=== PATIENT | female | born 1970 | race Caucasian/White ===

== ENCOUNTER → 2017-02-23 | Outpatient (CLI) | payer BC, OTHER ==
--- NOTE | 2017-02-24 02:25 | REP ---
Clinical: Back pain. Technique: AP, lateral, bilateral oblique, flexion/extension, and coned-down views of the lumbosacral spine. Findings: Alignment and lordosis is maintained. The vertebral bodies including transverse process and spinous processes are intact and normal. There is no evidence for acute fracture / compression injury or subluxation. No evidence for spondylolysis or spondylolisthesis. Mild age-related changes noted without significant degenerative disease. Impression: Normal lumbosacral spine radiograph series. Signed by Monty Morrow MD 02/24/2017 02:16 A
== END ==
LOC: M SMT 09:09
PROVIDERS: ATTEND Family Medicine
DX: M54.5 Low back pain (principal)

== ENCOUNTER → 2017-05-07 | Outpatient (CLI) | payer BC, OTHER ==
[2017-05-07 14:13] LABS: ALBUMIN/GLOBULIN RATIO 1.25 (1.00-1.93); ALKALINE PHOSPHATASE 71 U/L (45-117); ALT/SGPT 23 U/L (12-78); ANION GAP 7 MEQ/L (8-16); AST/SGOT 16 U/L (15-37); BILIRUBIN,TOTAL 0.8 MG/DL (0.2-1.0); BLOOD UREA NITROGEN 11 MG/DL (7-18); CALCIUM LEVEL 9.2 MG/DL (8.5-10.1); CARBON DIOXIDE LEVEL 25 MEQ/L (21-32); CHLORIDE LEVEL 108 MEQ/L (98-107); CREATININE FOR GFR 0.68 MG/DL (0.55-1.02); FREE T4 1.06 NG/DL (0.76-1.46); GLOMERULAR FILTRATION RATE > 60.0 (>58); GLUCOSE, FASTING 86 MG/DL (70-105); MAGNESIUM LEVEL 2.4 MG/DL (1.8-2.4); POTASSIUM SERUM 4.2 MEQ/L (3.5-5.1); SODIUM LEVEL 140 MEQ/L (136-145); TOTAL PROTEIN 7.2 GM/DL (6.4-8.2)
== END ==
LOC: M SMT 08:14
PROVIDERS: ATTEND Family Medicine
DX: M25.551 Pain in right hip (principal); Z13.29 Encounter for screening for other suspected endocrine disorder

== ENCOUNTER → 2017-05-20 | Outpatient (CLI) | payer BC, OTHER ==
--- NOTE | 2017-05-21 04:07 | REP ---
Clinical: Pelvic mass by MRI. Technique: Transabdominal pelvic ultrasound followed by transvaginal examination for better evaluation of the endometrium and adnexa with color Doppler evaluation of the ovaries. Findings: Bladder is unremarkable and measures 3.7 x 5.1 x 6.9 cm. Enlarged, heterogeneous uterus measures 9.1 x 5.9 x 5.9 cm and demonstrates scattered myometrial calcifications along with sub centimeter left submucosal cyst with small mural calcification and 2.3 cm right intramural fibroid. The endometrial complex measures 8.3 mm thickness. No discrete uterine or endometrial abnormalities are appreciated. Right ovary has been removed. Left ovary is normal in appearance and vascularity without evidence for torsion and measures 2.8 x 2.7 x 3.0 cm; RI=0.69. No pelvic fluid or adnexal mass lesion. Impression: 1. Heterogeneous anteverted uterus with 2.3 cm intramural fibroid and small nonspecific subcentimeter complex submucosal cyst. Normal left ovary. History of prior right oophorectomy. Signed by Monty Morrow MD 05/21/2017 03:58 A
== END ==
LOC: M RAD 11:42
PROVIDERS: ATTEND Family Medicine
DX: N80.0 Endometriosis of uterus (principal); D25.9 Leiomyoma of uterus, unspecified

== ENCOUNTER → 2017-07-05 | Outpatient (CLI) | payer BC, OTHER ==
[2017-07-05 15:07] LABS: ANION GAP 10 MEQ/L (8-16); BLOOD UREA NITROGEN 8 MG/DL (7-18); CALCIUM LEVEL 9.5 MG/DL (8.5-10.1); CARBON DIOXIDE LEVEL 25 MEQ/L (21-32); CHLORIDE LEVEL 108 MEQ/L (98-107); CREATININE FOR GFR 0.64 MG/DL (0.55-1.02); FREE T4 1.04 NG/DL (0.76-1.46); GLOMERULAR FILTRATION RATE > 60.0 (>58); GLUCOSE, FASTING 91 MG/DL (70-105); MAGNESIUM LEVEL 2.3 MG/DL (1.8-2.4); POTASSIUM SERUM 4.1 MEQ/L (3.5-5.1); SODIUM LEVEL 143 MEQ/L (136-145)
[2017-07-07 00:06] LABS: Lyme Disease IgG/IgM Antibodie <0.91 ISR (0.00-0.90); Lyme Disease IgM Ab Quantitati <0.80 index (0.00-0.79)
== END ==
LOC: M SMT 09:26
PROVIDERS: ATTEND Family Medicine
DX: M25.551 Pain in right hip (principal); M25.552 Pain in left hip; M79.1 Myalgia; M54.5 Low back pain

== ENCOUNTER → 2017-11-22 | Outpatient (REF) | payer OTHER | LOC: M LAB REF 17:18 | DX: R10.9 Unspecified abdominal pain (principal) ==

== ENCOUNTER → 2017-11-25 | Outpatient (CLI) | payer BC, OTHER | LOC: M SMT 08:45 | DX: D25.1 Intramural leiomyoma of uterus (principal); N88.8 Other specified noninflammatory disorders of cervix uteri; R10.2 Pelvic and perineal pain; Z90.721 Acquired absence of ovaries, unilateral | CPT/HCPCS: 76830 ==

== ENCOUNTER → 2018-02-03 | Outpatient (CLI) | payer BC, OTHER ==
[2018-02-03 14:28] LABS: ALBUMIN 4.3 GM/DL (3.2-5.2); ALBUMIN/GLOBULIN RATIO 1.26 (1.00-1.93); ALKALINE PHOSPHATASE 85 U/L (45-117); ALT/SGPT 21 U/L (12-78); ANION GAP 7 MEQ/L (8-16); AST/SGOT 19 U/L (7-37); BILIRUBIN,TOTAL 0.6 MG/DL (0.2-1.0); BLOOD UREA NITROGEN 8 MG/DL (7-18); CALCIUM LEVEL 9.1 MG/DL (8.5-10.1); CARBON DIOXIDE LEVEL 27 MEQ/L (21-32); CHLORIDE LEVEL 107 MEQ/L (98-107); CREATININE FOR GFR 0.77 MG/DL (0.55-1.30); GLOMERULAR FILTRATION RATE > 60.0 (>58); GLUCOSE, FASTING 92 MG/DL (70-100); MAGNESIUM LEVEL 2.4 MG/DL (1.8-2.4); POTASSIUM SERUM 4.4 MEQ/L (3.5-5.1); SODIUM LEVEL 141 MEQ/L (136-145); TOTAL PROTEIN 7.7 GM/DL (6.4-8.2)
== END ==
LOC: M SMT 09:53
DX: G47.62 Sleep related leg cramps (principal)
CPT/HCPCS: 83735

== ENCOUNTER → 2018-06-24 | Outpatient (CLI) | payer BC, OTHER ==
[2018-06-24 10:16] LABS: CHOLESTEROL LEVEL 165 MG/DL (<200); FREE T4 1.05 NG/DL (0.76-1.46); HDL CHOLESTEROL 66 MG/DL (>40); LDL CHOLESTEROL 86.4 MG/DL (<100); NON-HDL-C 99 MG/DL; TRIGLYCERIDES LEVEL 63 MG/DL (<150)
== END ==
LOC: M SMT 08:03
DX: Z13.220 Encounter for screening for lipoid disorders (principal)

== ENCOUNTER → 2018-12-13 | Outpatient (REF) | payer OTHER | LOC: M LAB REF 17:44 | PROVIDERS: ATTEND Obstetrics & Gynecology | DX: Z12.4 Encounter for screening for malignant neoplasm of cervix (principal); Z11.51 Encounter for screening for human papillomavirus (HPV) | CPT/HCPCS: 87624; G0123 ==

== ENCOUNTER → 2019-07-11 | Outpatient (CLI) | payer OTHER ==
[2019-07-11 13:36] LABS: ALBUMIN 4.1 GM/DL (3.2-5.2); BLOOD UREA NITROGEN 12 MG/DL (7-18); CARBON DIOXIDE LEVEL 26 MEQ/L (21-32); CHLORIDE LEVEL 108 MEQ/L (98-107); CREATININE FOR GFR 0.75 MG/DL (0.55-1.30); FOLLICLE STIMULATING HORMONE 7.9 mIU/mL; GLOMERULAR FILTRATION RATE > 60.0 (>58); GLUCOSE, FASTING 80 MG/DL (70-100); LUTEINIZING HORMONE 4.9 mIU/mL; PHOSPHORUS LEVEL 3.1 MG/DL (2.5-4.9); POTASSIUM SERUM 4.5 MEQ/L (3.5-5.1); SODIUM LEVEL 141 MEQ/L (136-145)
[2019-07-16 14:24] LABS: DEHYDROEPIANDROSTERONE UNCONJ 188 ng/dL (31-701); TESTOSTERONE FREE (DIRECT) 1.7 pg/mL (0.0-4.2)
== END ==
LOC: M SMT 09:10
PROVIDERS: ATTEND Physician Assistant
DX: Z51.81 Encounter for therapeutic drug level monitoring (principal); L68.0 Hirsutism

== ENCOUNTER → 2019-07-11 | Outpatient (CLI) | payer OTHER ==
[2019-07-11 13:13] LABS: BASO % 0.8 % (0.0-1.0); EOS # 0.2 10^3/uL (0.0-0.5); EOS % 3.1 % (0.0-3.0); HEMATOCRIT 45.7 % (36.0-47.0); HEMOGLOBIN 15.3 g/dl (12.0-15.5); LYMPH # 1.8 10^3/uL (1.5-5.0); LYMPH % 34.6 % (24.0-44.0); MEAN CORPUSCULAR HEMOGLOBIN 31.4 pg (27.0-33.0); MEAN CORPUSCULAR HGB CONC 33.5 g/dl (32.0-36.5); MEAN CORPUSCULAR VOLUME 93.8 fl (80.0-96.0); MONO # 0.3 10^3/uL (0.0-0.8); MONO % 6.7 % (0.0-5.0); NEUTROPHILS # 2.8 10^3/uL (1.5-8.5); NEUTROPHILS % 54.6 % (36.0-66.0); PLATELET COUNT, AUTOMATED 242 10^3/uL (150-450); RED BLOOD COUNT 4.87 10^6/uL (4.00-5.40); WHITE BLOOD COUNT 5.1 10^3/uL (4.0-10.0)
[2019-07-11 13:32] LABS: ALBUMIN 4.1 GM/DL (3.2-5.2); ALT/SGPT 15 U/L (12-78); BILIRUBIN,TOTAL 0.7 MG/DL (0.2-1.0); BLOOD UREA NITROGEN 12 MG/DL (7-18); CALCIUM LEVEL 9.3 MG/DL (8.5-10.1); CARBON DIOXIDE LEVEL 27 MEQ/L (21-32); CHLORIDE LEVEL 110 MEQ/L (98-107); CHOLESTEROL LEVEL 163 MG/DL (<200); CHOLESTEROL RISK RATIO 2.762 (<5); CREATININE FOR GFR 0.76 MG/DL (0.55-1.30); GLOMERULAR FILTRATION RATE > 60.0 (>58); GLUCOSE, FASTING 86 MG/DL (70-100); HDL CHOLESTEROL 59 MG/DL (>40); LDL CHOLESTEROL 93 MG/DL (<100); NON-HDL-C 104 MG/DL; POTASSIUM SERUM 4.4 MEQ/L (3.5-5.1); SODIUM LEVEL 144 MEQ/L (136-145); TOTAL 25(OH) VITAMIN D 42.6 NG/ML (30.0-100.0); TOTAL PROTEIN 7.3 GM/DL (6.4-8.2); TRIGLYCERIDES LEVEL 56 MG/DL (<150)
== END ==
LOC: M SMT 09:07
PROVIDERS: ATTEND Family Medicine
DX: Z13.29 Encounter for screening for other suspected endocrine disorder (principal); Z13.220 Encounter for screening for lipoid disorders; Z13.0 Encounter for screening for diseases of the blood and blood-forming organs and certain disorders involving the immune mechanism; E55.9 Vitamin D deficiency, unspecified

== ENCOUNTER → 2020-01-02 | Outpatient (CLI) | payer OTHER | LOC: M PLALAB 10:10 | PROVIDERS: ATTEND Family Medicine | DX: Z84.81 Family history of carrier of genetic disease (principal) ==

== ENCOUNTER → 2020-03-25 | Outpatient (CLI) | payer OTHER ==
[2020-03-25 10:52] LABS: BASO % 0.7 % (0.0-1.0); EOS # 0.1 10^3/uL (0.0-0.5); HEMATOCRIT 46.5 % (36.0-47.0); HEMOGLOBIN 15.1 g/dl (12.0-15.5); LYMPH # 1.5 10^3/uL (1.5-5.0); LYMPH % 26.6 % (24.0-44.0); MEAN CORPUSCULAR HEMOGLOBIN 30.1 pg (27.0-33.0); MEAN CORPUSCULAR HGB CONC 32.5 g/dl (32.0-36.5); MEAN CORPUSCULAR VOLUME 92.6 fl (80.0-96.0); MONO # 0.4 10^3/uL (0.0-0.8); MONO % 7.7 % (0.0-5.0); NEUTROPHILS # 3.5 10^3/uL (1.5-8.5); NEUTROPHILS % 62.8 % (36.0-66.0); PLATELET COUNT, AUTOMATED 253 10^3/uL (150-450); RED BLOOD COUNT 5.02 10^6/uL (4.00-5.40); WHITE BLOOD COUNT 5.6 10^3/uL (4.0-10.0)
[2020-03-25 10:55] LABS: APPEARANCE, URINE CLEAR (CLEAR); BACTERIA, URINE AUTO 1+ (NEGATIVE); BILIRUBIN, URINE AUTO NEGATIVE (NEGATIVE); BLOOD, URINE BLOOD NEGATIVE (NEGATIVE); COLOR, URINE STRAW (YELLOW); GLUCOSE, URINE (UA) AUTO NEGATIVE (NEGATIVE); KETONE, URINE AUTO NEGATIVE (NEGATIVE); LEUKOCYTE ESTERASE, URINE AUTO NEGATIVE (NEGATIVE); NITRITE, URINE AUTO NEGATIVE (NEGATIVE); PROTEIN, URINE AUTO NEGATIVE (NEGATIVE); RBC, URINE AUTO 0 /HPF (0-3); SPECIFIC GRAVITY URINE AUTO 1.004 (1.002-1.035); SQUAMOUS EPITHELIAL CELL UR AU 0 /HPF (0-6); UROBILINOGEN, URINE AUTO 0.2 mg/dL (0.0-2.0); WBC, URINE AUTO 0 /HPF (0-3)
[2020-03-25 10:57] LABS: BLOOD UREA NITROGEN 10 MG/DL (7-18); CALCIUM LEVEL 9.1 MG/DL (8.5-10.1); CARBON DIOXIDE LEVEL 26 MEQ/L (21-32); CHLORIDE LEVEL 107 MEQ/L (98-107); CREATININE FOR GFR 0.73 MG/DL (0.55-1.30); GLOMERULAR FILTRATION RATE > 60.0 (>58); GLUCOSE, FASTING 76 MG/DL (70-100); SODIUM LEVEL 140 MEQ/L (136-145)
[2020-03-25 11:13] LABS: HEMOGLOBIN A1c 5.2 %
[2020-03-25 11:34] LABS: CREATININE, URINE 17.1 MG/DL; MALB URINE SIEMENS < 5.0 MG/L; MAU/CREAT RATIO 29.2 MCG/MG (0.0-30.0)
== END ==
LOC: M PLALAB 08:07
PROVIDERS: ATTEND Internal Medicine Nephrology
DX: Z00.5 Encounter for examination of potential donor of organ and tissue (principal)

== ENCOUNTER → 2020-04-15 | Outpatient (CLI) | payer OTHER ==
[2020-04-15 12:24] LABS: APPEARANCE, URINE CLOUDY (CLEAR); BACTERIA, URINE AUTO NEGATIVE (NEGATIVE); BILIRUBIN, URINE AUTO NEGATIVE (NEGATIVE); BLOOD, URINE BLOOD NEGATIVE (NEGATIVE); COLOR, URINE YELLOW (YELLOW); GLUCOSE, URINE (UA) AUTO NEGATIVE (NEGATIVE); KETONE, URINE AUTO NEGATIVE (NEGATIVE); LEUKOCYTE ESTERASE, URINE AUTO NEGATIVE (NEGATIVE); MUCUS, URINE SMALL (NEGATIVE); NITRITE, URINE AUTO NEGATIVE (NEGATIVE); PROTEIN, URINE AUTO NEGATIVE (NEGATIVE); RBC, URINE AUTO 2 /HPF (0-3); SPECIFIC GRAVITY URINE AUTO 1.018 (1.002-1.035); SQUAMOUS EPITHELIAL CELL UR AU 3 /HPF (0-6); UROBILINOGEN, URINE AUTO 0.2 mg/dL (0.0-2.0); WBC, URINE AUTO 0 /HPF (0-3)
[2020-04-15 12:31] LABS: CREATININE FOR GFR 0.81 MG/DL (0.55-1.30); GLOMERULAR FILTRATION RATE > 60.0 (>58)
[2020-04-15 13:16] LABS: TOTAL VOLUME, URINE 1900 ML
[2020-04-15 13:26] LABS: MALB URINE SIEMENS 7.1 MG/L; MAU/CREAT RATIO 5.7 MCG/MG (0.0-30.0); TOTAL PROTEIN 24 HOUR URINE 317.3 MG/24HR (50-150); URINE TOTAL PROTEIN 16.7 MG/DL (0-12)
== END ==
LOC: M PLALAB 08:04
PROVIDERS: ATTEND Internal Medicine Nephrology
DX: Z00.5 Encounter for examination of potential donor of organ and tissue (principal)

== ENCOUNTER 2020-05-10 08:35 | Day surgery (SDC) | payer BC, OTHER ==
[~2020-05-10] VITALS: Ht 167.6 cm; Wt 67.9 kg
[~2020-05-10 08:35] MED LIST: MONT10TA4 PO; NS 1,000 ML IV ONE; OMEP-221 PO
[2020-05-10] MEDS ORDERED: propofoL 200 MG/20 ML VIAL As Ordered ONE ×2 (10:23→10:43)
[2020-05-10] MEDS ORDERED: LIDOCAINE 2% 100MG/5ML SDV (FOR ANES.) As Ordered ONE (10:23)
--- NOTE | 2020-05-10 11:00 | ROOR ---
Patient Name: Ayse Collazo Procedure Date: 05/10/2020 10:26 AM Date of : 1970 Age: 49 Room: [facility] Gender: Female Note Status: Finalized Procedure: Upper GI endoscopy Indications: Suspected gastro-esophageal reflux disease Providers: Raghu Aly MD Referring MD: Valeria RICHARDSON DO Requesting Provider: Medicines: Monitored Anesthesia Care Complications: No immediate complications. Procedure: Pre-Anesthesia Assessment: - Prior to the procedure, a History and Physical was performed, and patient medications and allergies were reviewed. The patient is competent. The risks and benefits of the procedure and the sedation options and risks were discussed with the patient. All questions were answered and informed consent was obtained. Patient identification and proposed procedure were verified by the physician, the nurse and the anesthesiologist in the procedure room. Mental Status Examination: alert and oriented. Airway Examination: normal oropharyngeal airway and neck mobility. Respiratory Examination: clear to auscultation. CV Examination: normal. Prophylactic Antibiotics: The patient does not require prophylactic antibiotics. Prior Anticoagulants: The patient has taken no previous anticoagulant or antiplatelet agents. ASA Grade Assessment: II - A patient with mild systemic disease. After reviewing the risks and benefits, the patient was deemed in satisfactory condition to undergo the procedure. The anesthesia plan was to use monitored anesthesia care (MAC). Immediately prior to administration of medications, the patient was re-assessed for adequacy to receive sedatives. The heart rate, respiratory rate, oxygen saturations, blood pressure, adequacy of pulmonary ventilation, and response to care were monitored throughout the procedure. The physical status of the patient was re-assessed after the procedure. The Endoscope was introduced through the mouth, and advanced to the second part of duodenum. The upper GI endoscopy was accomplished without difficulty. The patient tolerated the procedure well. Findings: Mucosal changes including ringed esophagus, longitudinal furrows and white plaques were found in the middle third of the esophagus and in the lower third of the esophagus. Biopsies were obtained from the proximal and distal esophagus with cold forceps for histology of suspected eosinophilic esophagitis. Verification of patient identification for the specimen was done by the physician and nurse using the patient's name, date and medical record number. The Z-line was regular and was found 40 cm from the incisors. Scattered mild inflammation characterized by erythema and granularity was found in the gastric antrum. Biopsies were taken with a cold forceps for Helicobacter pylori testing. The duodenal bulb and second portion of the duodenum were normal. Biopsies for histology were taken with a cold forceps for evaluation of celiac disease. Impression: - Esophageal mucosal changes suspicious for eosinophilic esophagitis. Biopsied. - Z-line regular, 40 cm from the incisors. - Gastritis. Biopsied. - Normal duodenal bulb and second portion of the duodenum. Biopsied. Recommendation: - Patient has a contact number available for emergencies. The signs and symptoms of potential delayed complications were discussed with the patient. Return to normal activities tomorrow. Written discharge instructions were provided to the patient. - High fiber diet. - Continue present medications. - Await pathology results. - Follow an antireflux regimen. - Telephone GI clinic for pathology results in 2 weeks. - Return to primary care physician. Raghu Aly MD Raghu Aly MD 05/10/2020 11:00:09 AM Electronically signed by Raghu Aly MD Number of Addenda: 0 Note Initiated On: 05/10/2020 10:26 AM Estimated Blood Loss: Estimated blood loss was minimal.
[2020-05-10 11:30] VITALS: BP 128/72
== END 2020-05-10 11:45 | disposition home or self-care (01) ==
LOC: M OPP 08:35
PROVIDERS: ATTEND Internal Medicine Gastroenterology
DX: K22.8 Other specified diseases of esophagus (principal); K29.70 Gastritis, unspecified, without bleeding; R12 Heartburn; R10.13 Epigastric pain; K21.0 Gastro-esophageal reflux disease with esophagitis

== ENCOUNTER → 2020-08-08 | Outpatient (CLI) | payer BC, OTHER ==
[~2020-08-08] MED LIST changes: +METHACHOLINE KIT (J7674) INH ONE; -NS 1,000 ML IV ONE
--- NOTE | 2020-08-08 13:14 | PFTRPT ---
Height: 65.00 Inches Weight: 150.00 Lbs BSA: 1.75 Diagnosis: R05 DATE: 08/08/2020 ORDERING PHYSICIAN: Dr. Juarez Study of excellent technical quality. Forced vital capacity is normal. FEV1 is in proportion, obstructive index is therefore normal. Expiratory limit of the flow-volume loop is normal. Total lung capacity is normal. Residual volume is in proportion. Diffusing capacity is normal. Hemoglobin is acceptable at 15. Airway resistance and conductance are normal. IMPRESSION: Normal study. MTDD
--- NOTE | 2020-08-08 13:59 | PFTRPT ---
Site: [facility], [address] [place], [address] ID: [id number] Name: DRAGAN BILLINGSLEY Visit Date: 08/08/2020 Second ID: [id number] Referring Doctor: Janusz Juarez MD Reviewing Doctor: Janusz Juarez MD Coverer: Alden BOWERS, BRODY Age: 50 : 1970 Sex: Female Race: Height: 65.00 Inches Weight: 150.00 Lbs BSA: 1.75 Order IDs: [id number] Requested Test(s): <RESP-PFT.METH CHAL> Diagnosis: R05 of albuterol for post bronchodilator. Review Status: Not Reviewed Pre-Bronch Post-Bronch Pred Actual %Pred Actual %Chng SPIROMETRY FVC (L) 3.68 3.40 92 3.15 -7 FEV1 (L) 2.92 2.69 92 2.59 -3 FEV1/FVC (%) 80 79 98 82 4 FEF 25% (L/sec) 5.35 5.03 94 5.55 10 FEF 50% (L/sec) 3.95 3.00 76 2.85 -5 FEF 75% (L/sec) 1.46 1.01 68 0.76 -24 FEF 25-75% (L/sec) 2.85 2.35 82 2.08 -11 FEF Max (L/sec) 6.92 7.01 101 6.14 -12 FIVC (L) 3.35 3.34 FIF 50% (L/sec) 3.67 5.17 140 3.41 -33 FIF Max (L/sec) 5.26 3.60 -31 Expiratory Time (sec) 6.43 6.59 2 Back Extrap Vol (L) 0.08 0.09 21 Time To FEFmax (sec) 0.067 0.090 35
== END ==
LOC: M CARPUL 12:39
PROVIDERS: ATTEND Internal Medicine Pulmonary Disease
DX: R05 Cough (principal)
CPT/HCPCS: 88738; 94010; 94070; 94726; 94729; J7674

== ENCOUNTER → 2020-08-12 | Outpatient (REF) | payer OTHER ==
[~2020-08-12] MED LIST changes: -METHACHOLINE KIT (J7674) INH ONE
== END ==
LOC: M PLALAB 09:12
PROVIDERS: ATTEND Obstetrics & Gynecology
DX: Z12.4 Encounter for screening for malignant neoplasm of cervix (principal)

== ENCOUNTER → 2021-02-05 | Outpatient (CLI) | payer BC, OTHER ==
[~2021-02-05] MED LIST changes: +MONT10TA10 PO; -MONT10TA4 PO
--- NOTE | 2021-02-05 08:27 | REPPI ---
INDICATION: COUGH COMPARISON: 07/18/2020 TECHNIQUE: PA and lateral. FINDINGS: The mediastinum and cardiac silhouette are normal. The lung mujica are clear and without acute consolidation, effusion, or pneumothorax. The skeletal structures are intact and normal. IMPRESSION: No acute cardiopulmonary process. <Electronically signed by Monty Morrow > 02/05/21 0804
== END ==
LOC: M PLAIMG 08:02
PROVIDERS: ATTEND Internal Medicine Pulmonary Disease
DX: R05 Cough (principal)

== ENCOUNTER → 2021-02-11 | Outpatient (CLI) | payer BC, OTHER ==
[~2021-02-11] MED LIST changes: +ISOVUE-370 76% 100ML VIAL As Ordered ONE
--- NOTE | 2021-02-11 15:24 | REP ---
INDICATION: SHORTNESS OF BREATH COMPARISON: None. TECHNIQUE: Axial contrast enhanced images from the thoracic inlet to the upper abdomen using pulmonary embolus technique with multiplanar re-formations. 75 ml Isovue 370 intravenous contrast material administered without complication. This CT examination was performed using the following dose reduction techniques: Automated exposure control, adjustment of mA and/or kv according to the patient's size, and use of iterative reconstruction technique. FINDINGS: Satisfactory enhancement of the pulmonary vasculature is achieved and no filling defects are identified to suggest pulmonary embolus. Further evaluation of the mediastinum demonstrates normal thoracic aorta, heart and pericardium. The bilateral lung mujica are well aerated and clear without consolidation pleural effusion or pneumothorax. Tracheobronchial tree is patent. No nodule or mass lesion is identified. No adenopathy noted. Surrounding musculoskeletal structures intact IMPRESSION: No evidence for pulmonary embolus. No acute mediastinal or pleural parenchymal process. <Electronically signed by Monty Morrow > 02/11/21 0351
[2021-02-11 16:10] LABS: CK-MB VALUE MASS < 1.0 NG/ML (<3.6); CPK CREATINE PHOSPHOKINASE 80 U/L (26-192); MB/CK RELATIVE INDEX 1.25 (< OR =4); TROPONIN I < 0.02 NG/ML (< 0.10)
== END ==
LOC: M RAD 14:47
PROVIDERS: ATTEND Family Medicine
DX: R06.02 Shortness of breath (principal)

== ENCOUNTER → 2021-07-03 | Outpatient (CLI) | payer OTHER, BC ==
[~2021-07-03] MED LIST changes: -ISOVUE-370 76% 100ML VIAL As Ordered ONE
[2021-07-03 10:46] LABS: BASO # 0.1 10^3/uL (0.0-0.2); EOS # 0.1 10^3/uL (0.0-0.5); EOS % 1.8 % (0.0-3.0); HEMATOCRIT 44.7 % (36.0-47.0); LYMPH # 1.9 10^3/uL (1.5-5.0); LYMPH % 30.9 % (24.0-44.0); MEAN CORPUSCULAR HEMOGLOBIN 30.8 pg (27.0-33.0); MEAN CORPUSCULAR HGB CONC 33.6 g/dl (32.0-36.5); MEAN CORPUSCULAR VOLUME 91.8 fl (80.0-96.0); MONO # 0.5 10^3/uL (0.0-0.8); MONO % 8.5 % (2.0-8.0); NEUTROPHILS # 3.5 10^3/uL (1.5-8.5); NEUTROPHILS % 57.6 % (36.0-66.0); PLATELET COUNT, AUTOMATED 311 10^3/uL (150-450); RED BLOOD COUNT 4.87 10^6/uL (4.00-5.40)
[2021-07-03 11:26] LABS: ALBUMIN 3.9 GM/DL (3.2-5.2); ALT/SGPT 14 U/L (12-78); BILIRUBIN,TOTAL 0.7 MG/DL (0.2-1.0); BLOOD UREA NITROGEN 10 MG/DL (7-18); CALCIUM LEVEL 9.2 MG/DL (8.5-10.1); CARBON DIOXIDE LEVEL 28 MEQ/L (21-32); CHLORIDE LEVEL 109 MEQ/L (98-107); CHOLESTEROL LEVEL 172 MG/DL (<200); CHOLESTEROL RISK RATIO 2.529 (<5); CREATININE FOR GFR 0.71 MG/DL (0.55-1.30); FREE T4 1.17 NG/DL (0.76-1.46); GLOMERULAR FILTRATION RATE > 60.0 (>58); GLUCOSE, FASTING 86 MG/DL (70-100); HDL CHOLESTEROL 68 MG/DL (>40); LDL CHOLESTEROL 92 MG/DL (<100); NON-HDL-C 104 MG/DL; POTASSIUM SERUM 3.6 MEQ/L (3.5-5.1); SODIUM LEVEL 142 MEQ/L (136-145); TOTAL PROTEIN 7.1 GM/DL (6.4-8.2); TRIGLYCERIDES LEVEL 58 MG/DL (<150)
== END ==
LOC: M PLALAB 08:21
PROVIDERS: ATTEND Family Medicine
DX: Z13.0 Encounter for screening for diseases of the blood and blood-forming organs and certain disorders involving the immune mechanism (principal)

== ENCOUNTER → 2021-10-08 | Outpatient (REF) | payer OTHER, BC | LOC: M SFHCWAGY 13:06 | PROVIDERS: ATTEND Obstetrics & Gynecology | DX: Z12.4 Encounter for screening for malignant neoplasm of cervix (principal) ==

== ENCOUNTER → 2021-10-14 | Outpatient (REF) | payer OTHER, BC | LOC: M LAB REF 17:03 | PROVIDERS: ATTEND Family Medicine | DX: J02.9 Acute pharyngitis, unspecified (principal); J06.9 Acute upper respiratory infection, unspecified ==

== ENCOUNTER → 2021-11-21 | Outpatient (CLI) | payer BC, OTHER ==
[~2021-11-21] MED LIST changes: -MONT10TA10 PO; +MONT10TA97 PO; -OMEP-221 PO; +OMEP40CA5 PO
== END ==
LOC: M PLAIMG 13:20
PROVIDERS: ATTEND Physician Assistant Medical
DX: J32.9 Chronic sinusitis, unspecified (principal)

== ENCOUNTER → 2021-12-10 | Outpatient (CLI) | payer BC, OTHER ==
[2021-12-10 15:36] LABS: HEMATOCRIT 45.6 % (36.0-47.0); MEAN CORPUSCULAR HEMOGLOBIN 30.2 pg (27.0-33.0); MEAN CORPUSCULAR HGB CONC 32.9 g/dl (32.0-36.5); MEAN CORPUSCULAR VOLUME 91.8 fl (80.0-96.0); PLATELET COUNT, AUTOMATED 348 10^3/uL (150-450); RED BLOOD COUNT 4.97 10^6/uL (4.00-5.40); WHITE BLOOD COUNT 8.9 10^3/uL (4.0-10.0)
[2021-12-10 16:07] LABS: ALBUMIN 4.1 GM/DL (3.2-5.2); ALT/SGPT 13 U/L (12-78); BILIRUBIN,TOTAL 0.5 MG/DL (0.2-1.0); BLOOD UREA NITROGEN 7 MG/DL (7-18); CALCIUM LEVEL 9.4 MG/DL (8.5-10.1); CARBON DIOXIDE LEVEL 27 MEQ/L (21-32); CHLORIDE LEVEL 106 MEQ/L (98-107); CREATININE FOR GFR 0.67 MG/DL (0.55-1.30); GLOMERULAR FILTRATION RATE > 60.0 (>51); GLUCOSE, FASTING 87 MG/DL (70-100); IRON (FE) 41 UG/DL (50-170); MAGNESIUM LEVEL 2.4 MG/DL (1.8-2.4); NT-PRO BNP 145 PG/ML (<125); PERCENT SATURATION 13.9 % (13.2-45.0); SODIUM LEVEL 140 MEQ/L (136-145); TOTAL IRON BINDING CAPACITY 295 UG/DL (250-450); TOTAL PROTEIN 7.4 GM/DL (6.4-8.2)
== END ==
LOC: M PLALAB 14:04
PROVIDERS: ATTEND Physician Assistant
DX: R00.2 Palpitations (principal); R06.02 Shortness of breath

== ENCOUNTER → 2021-12-16 | Outpatient (CLI) | payer BC, OTHER ==
[2021-12-18 20:07] LABS: ANA (HEP2) Negative (.)
== END ==
LOC: M PLALAB 12:38
PROVIDERS: ATTEND Family Medicine
DX: R68.2 Dry mouth, unspecified (principal)

== ENCOUNTER → 2022-01-09 | Outpatient (CLI) | payer BC, OTHER ==
[2022-01-09 17:36] LABS: C REACTIVE PROTEIN QUANTITATIV < 0.30 MG/DL (0.00-0.30); RHEUMATOID FACTOR QUANT < 10.0 IU/ML (<15.0)
== END ==
LOC: M PLALAB 14:52
PROVIDERS: ATTEND Nurse Practitioner Adult Health
DX: R76.0 Raised antibody titer (principal)

== ENCOUNTER → 2022-03-06 | Outpatient (CLI) | payer BC, OTHER ==
[2022-03-11 00:07] LABS: BORDETELLA PERTUSSIS ABY IgA 1.8 index (0.0-0.9); BORDETELLA PERTUSSIS ABY IgM <1.0 index (0.0-0.9)
== END ==
LOC: M PLALAB 15:39
PROVIDERS: ATTEND Physician Assistant
DX: R05.3 Chronic cough (principal)

== ENCOUNTER → 2022-03-06 | Outpatient (CLI) | payer BC, OTHER | LOC: M WHC 14:28 | PROVIDERS: ATTEND Physician Assistant | DX: E04.2 Nontoxic multinodular goiter (principal) ==

== ENCOUNTER → 2022-03-12 | Outpatient (REF) | payer OTHER, BC | LOC: M SFHCADAM 12:31 | PROVIDERS: ATTEND Physician Assistant | DX: R05.9 Cough, unspecified (principal) ==

== ENCOUNTER → 2022-03-16 | Outpatient (CLI) | payer BC, OTHER | LOC: M PLALAB 08:26 | PROVIDERS: ATTEND Allergy & Immunology Allergy | DX: R05.3 Chronic cough (principal) ==

== ENCOUNTER → 2022-05-04 | Outpatient (CLI) | payer BC, OTHER | LOC: M LABSMTC 11:18 | PROVIDERS: ATTEND Pediatrics | DX: Z11.52 Encounter for screening for COVID-19 (principal) ==

== ENCOUNTER → 2022-06-03 | Outpatient (CLI) | payer BC, OTHER ==
[~2022-06-03] MED LIST changes: +ADVA115A; +FLON27.5 NARES; +OMEP-173; +PROAAER10; +TRAZ-252; +VITA100093 PO
== END ==
LOC: M LABSMTC 10:59
PROVIDERS: ATTEND Anesthesiology
DX: Z11.52 Encounter for screening for COVID-19 (principal)

== ENCOUNTER 2022-06-08 07:40 | Day surgery (SDC) | payer BC, OTHER ==
[~2022-06-08] VITALS: Ht 165.1 cm; Wt 70.5 kg
[~2022-06-08 07:40] MED LIST changes: +LIDOCAINE 2% 100MG/5ML SDV (FOR ANES.) As Ordered ONE; +NS 1,000 ML IV ONE; +propofoL 500 MG/50 ML VIAL As Ordered ONE
[2022-06-08] MEDS ORDERED: fentaNYL 100 MCG/2 ML INJECTION As Ordered ONE (09:04)
[2022-06-08 10:13] VITALS: BP 136/86
== END 2022-06-08 10:14 | disposition home or self-care (01) ==
LOC: M OPP 07:40
PROVIDERS: ATTEND Internal Medicine Gastroenterology
DX: Z12.11 Encounter for screening for malignant neoplasm of colon (principal); D12.0 Benign neoplasm of cecum; K64.4 Residual hemorrhoidal skin tags; K64.8 Other hemorrhoids; K22.89 Other specified disease of esophagus; K31.89 Other diseases of stomach and duodenum; K29.70 Gastritis, unspecified, without bleeding; K20.0 Eosinophilic esophagitis; E04.9 Nontoxic goiter, unspecified; F41.9 Anxiety disorder, unspecified; Z80.3 Family history of malignant neoplasm of breast; Z79.51 Long term (current) use of inhaled steroids; Z79.899 Other long term (current) drug therapy; Z91.048 Other nonmedicinal substance allergy status
CPT/HCPCS: 43239; 45385; 88305; J3010

== ENCOUNTER → 2022-11-25 | Outpatient (REF) | payer BC, OTHER ==
[~2022-11-25] MED LIST changes: -LIDOCAINE 2% 100MG/5ML SDV (FOR ANES.) As Ordered ONE; -NS 1,000 ML IV ONE; -propofoL 500 MG/50 ML VIAL As Ordered ONE
== END ==
LOC: M SFHCWAGY 17:55
PROVIDERS: ATTEND Obstetrics & Gynecology
DX: Z01.419 Encounter for gynecological examination (general) (routine) without abnormal findings (principal)

== ENCOUNTER → 2023-02-25 | Outpatient (CLI) | payer BC, OTHER | LOC: M WHC 10:45 | PROVIDERS: ATTEND Physician Assistant | DX: E04.1 Nontoxic single thyroid nodule (principal) ==

== ENCOUNTER → 2023-06-17 | Outpatient (CLI) | payer BC, OTHER ==
[2023-06-17 10:28] LABS: BASO # 0.1 10^3/uL (0.0-0.2); EOS # 0.1 10^3/uL (0.0-0.5); EOS % 1.4 % (0.0-3.0); HEMATOCRIT 46.5 % (36.0-47.0); HEMOGLOBIN 15.2 g/dl (12.0-15.5); LYMPH # 1.8 10^3/uL (1.5-5.0); LYMPH % 34.1 % (24.0-44.0); MEAN CORPUSCULAR HEMOGLOBIN 30.5 pg (27.0-33.0); MEAN CORPUSCULAR HGB CONC 32.7 g/dl (32.0-36.5); MEAN CORPUSCULAR VOLUME 93.2 fl (80.0-96.0); MONO # 0.4 10^3/uL (0.0-0.8); NEUTROPHILS # 2.9 10^3/uL (1.5-8.5); NEUTROPHILS % 56.3 % (36.0-66.0); PLATELET COUNT, AUTOMATED 256 10^3/uL (150-450); RED BLOOD COUNT 4.99 10^6/uL (4.00-5.40); WHITE BLOOD COUNT 5.1 10^3/uL (4.0-10.0)
[2023-06-17 10:51] LABS: ALBUMIN 3.9 G/DL (3.2-5.2); ALKALINE PHOSPHATASE 76 U/L (46-116); ALT/SGPT 13 U/L (7.0-40); AST/SGOT 8 U/L (<34); BILIRUBIN,TOTAL 0.8 MG/DL (0.3-1.2); BLOOD UREA NITROGEN 14 MG/DL (9-23); CALCIUM LEVEL 9.3 MG/DL (8.5-10.1); CARBON DIOXIDE LEVEL 26 MMOL/L (20-31); CHLORIDE LEVEL 109 MMOL/L (98-107); CHOLESTEROL LEVEL 167 MG/DL (<200); FERRITIN 78.7 NG/ML (7.3-270.7); GLOMERULAR FILTRATION RATE > 60.0 (>51); GLUCOSE, FASTING 86 MG/DL (60-100); HDL CHOLESTEROL 64.1 MG/DL (>40); IRON (FE) 101 UG/DL (50-170); LDL CHOLESTEROL 91.9 MG/DL (<100); NON-HDL-C 102.9 MG/DL; POTASSIUM SERUM 4.5 MMOL/L (3.5-5.1); SODIUM LEVEL 140 MMOL/L (136-145); TOTAL PROTEIN 6.9 G/DL (5.7-8.2); TRIGLYCERIDES LEVEL 55 MG/DL (<150)
[2023-06-17 10:52] LABS: THYROID STIMULATING HORMONE 2.845 uIU/ML (0.55-4.78)
[2023-06-17 10:53] LABS: HEMOGLOBIN A1c 4.9 % (4.0-6.0)
== END ==
LOC: M PLALAB 07:07
PROVIDERS: ATTEND Physician Assistant
DX: M79.671 Pain in right foot (principal)

== ENCOUNTER → 2023-08-27 | Outpatient (CLI) | payer BC, OTHER | LOC: M RAD 07:31 | PROVIDERS: ATTEND Surgery | DX: K46.9 Unspecified abdominal hernia without obstruction or gangrene (principal) ==

== ENCOUNTER → 2023-12-24 | Outpatient (CLI) | payer BC | LOC: M WHC 15:01 | PROVIDERS: ATTEND Obstetrics & Gynecology | DX: N93.9 Abnormal uterine and vaginal bleeding, unspecified (principal) ==

== ENCOUNTER → 2024-02-25 | Outpatient (CLI) | payer BC | LOC: M WHC 10:38 | PROVIDERS: ATTEND Physician Assistant | DX: E04.1 Nontoxic single thyroid nodule (principal) ==

== ENCOUNTER → 2024-06-05 | Outpatient (CLI) | payer BC | LOC: M PLAIMG 13:43 | PROVIDERS: ATTEND Internal Medicine Cardiovascular Disease | DX: R06.02 Shortness of breath (principal); I44.7 Left bundle-branch block, unspecified; R94.31 Abnormal electrocardiogram [ECG] [EKG] ==

== ENCOUNTER → 2024-09-13 | Outpatient (CLI) | payer BC | LOC: M PLAIMG 13:31 | PROVIDERS: ATTEND Nurse Practitioner Family | DX: J45.30 Mild persistent asthma, uncomplicated (principal) ==

== ENCOUNTER → 2025-03-08 | Outpatient (CLI) | payer BC | LOC: M RAD 08:27 | PROVIDERS: ATTEND Physician Assistant | DX: E04.1 Nontoxic single thyroid nodule (principal) ==

== ENCOUNTER → 2025-08-15 | Outpatient (REF) | payer BC ==
[2025-08-15 13:10] LABS: CALCIUM LEVEL 9.2 MG/DL (8.5-10.1); CARBON DIOXIDE LEVEL 25 MMOL/L (20-31); CHLORIDE LEVEL 106 MMOL/L (98-107); CREATININE FOR GFR 0.73 MG/DL (0.55-1.30); GLOMERULAR FILTRATION RATE > 90.0 (>51); POTASSIUM SERUM 4.2 MMOL/L (3.5-5.1); SODIUM LEVEL 142 MMOL/L (136-145)
== END ==
LOC: M SFHCADAM 08:33
PROVIDERS: ATTEND Physician Assistant
DX: R05.3 Chronic cough (principal)

== ENCOUNTER → 2025-08-30 | Outpatient (CLI) | payer BC ==
[~2025-08-30] MED LIST changes: +ISOVUE-370 76% 100 ML VIAL ONE
== END ==
LOC: M PLAIMG 12:34
PROVIDERS: ATTEND Physician Assistant
DX: R05.3 Chronic cough (principal); K80.20 Calculus of gallbladder without cholecystitis without obstruction
CPT/HCPCS: 71260; Q9967